=== PATIENT | female | born 1945 | race Caucasian/White ===

== ENCOUNTER → 2017-06-21 12:44 | Outpatient (CLI) | payer MEDICARE, OTHER, SELFPAY ==
--- NOTE | 2017-06-21 12:47 | RAD_ITS ---
STUDY: X-RAY - LEFT KNEE REASON FOR EXAM: Female, 72 years old. 7 months postop. TECHNIQUE: 4 view(s) of the knee. COMPARISON: None. FINDINGS: There is demineralization of the visualized distal femur. There is demineralization of the tibia and fibula. Normal proximal tibiofibular articulation. Total knee arthroplasty is demonstrating showing no evidence of hardware failure or loosening surrounding the prosthesis. Patellar prosthesis showing no evidence of hardware failure is present. No evidence of suprapatellar effusion. The soft tissue structures are unremarkable. RAD/Knee 4 or More Views IMPRESSION: Total knee arthroplasty showing no evidence of hardware failure or loosening with normal alignment. Electronically Signed: Lisandro Weinberg DO at 21:10 EDT , Service support ,
== END ==
PROVIDERS: Family Provider Family Medicine Geriatric Medicine; PCP Family Medicine Geriatric Medicine; Visit Provider Orthopaedic Surgery
DX: M25.562 Pain in left knee (principal); Z96.652 Presence of left artificial knee joint
CPT/HCPCS: 73564

== ENCOUNTER → 2017-07-28 10:28 | Outpatient (CLI) | payer MEDICARE, OTHER, SELFPAY ==
[2017-07-28 12:02] LABS: Absolute Lymphocyte Count 2.71 X10^3/ul (0.83-4.51); Absolute Neutrophil Count 5.7 X10^3/uL (2.0-7.7); Basophil# 0.03 X10^3/uL; Basophil% 0.3 % (0-1); Eosinophil# 0.14 X10^3/uL; Eosinophils% 1.5 % (0-5); Hematocrit 43.4 % (37-47); Hemoglobin 13.5 g/dl (12.0-15.0); Lymphocyte # 2.71 X10^3/ul (4.0); Lymphocyte % 29.6 % (19-41); Mean Corp Hgb Conc 31.1 g/gl (32-36); Mean Corpuscular Hgb 28.3 pg (27.0-32.0); Mean Platelet Vol. 10.7 fl (6.2-12.0); Monocyte# 0.54 X10^3/uL; Monocyte% 5.9 % (0-10); Neutrophil # 5.71 X10^3/uL (2.7-7.7); Neutrophil % 62.6 % (47-70); Platelet Count 218 K/mm3 (150-450); RBC Distribution Width SD 43.1 fl (35.1-43.9); Red Blood Count 4.77 M/mm3 (4.2-5.4); White Blood Count 9.1 K/mm3 (4.4-11.0)
[2017-07-28 12:06] LABS: POSITIVE COUNT NO; POSITIVE DIFFERENTIAL NO; POSITIVE MORPHOLOGY NO
[2017-07-28 12:36] LABS: Vitamin D,25 Hydroxy 21.3 ng/mL (29.95-100.01)
[2017-07-28 12:53] LABS: ALB/GLOB Ratio 0.9 RATIO (0.9-2.4); AST(SGOT) 21 U/L (15-37); Alanine Aminotransfer ALT/SGPT 22 U/L (13-56); Albumin, Serum 3.5 g/dL (3.2-5.0); Alkaline Phosphatase 108 U/L (45-117); Anion Gap 8 (5-15); BUN 12 mg/dL (7-18); BUN/Creat Ratio 11.2 RATIO (10-20); Calcium,Total 8.6 mg/dL (8.5-10.1); Chloride 106 mmol/L (98-107); Creatinine, Serum 1.07 mg/dL (0.55-1.02); EST Glomerular Filtration Rate 54 mL/min (>60); Est Glom Filt Rate - Afr Amer 65 mL/min (>60); Globulin 3.9 g/dL (2.2-4.2); Glucose 100 mg/dL (74-106); Potassium 4.2 mmol/L (3.5-5.1); Protein, Total 7.4 g/dL (6.4-8.2); Sodium Level 141 mmol/L (136-145); Thyroid Stim Hormone (TSH) 1.65 uIU/mL (0.358-3.74)
[2017-07-29 09:27] LABS: Hep C Antibodies <0.1 s/co ratio (0.0-0.9)
== END ==
PROVIDERS: Family Provider Family Medicine Geriatric Medicine; PCP Family Medicine Geriatric Medicine; Visit Provider Family Medicine Geriatric Medicine
DX: E55.9 Vitamin D deficiency, unspecified (principal); I10 Essential (primary) hypertension; Z13.89 Encounter for screening for other disorder
CPT/HCPCS: 36415; 80053; 82306; 84443; 85025; 86803

== ENCOUNTER → 2017-08-28 15:32 | Outpatient (CLI) | payer MEDICARE, OTHER, SELFPAY ==
--- NOTE | 2017-08-28 11:30 | COLBX_PTH ---
PATIENT: COLE CHAVARRIA LOC: [facility] U#:[id number] AGE/SX: 79/F ROOM: RE08/28/[address]: Dr. Jeromy Oro MD : 1945 BED: DIS: SPEC #: [id number] RECD: 08/28/17 15:14 STATUS: IAN REAzam #: [id number] OSVALDO: 08/28/17 11:[address]: Jeromy Oro DEPT: SURGICAL PATHOLOGY RECD BY: Jeffrey Santiago ENTERED: 08/29/17 08:02 SP TYPE: COLON BX OTHR DR: Dr. Hermes Engle MD [facility] Tissues: Cecum, NOS Procedures: Surgery Specimen Level IV HEADER OPERATION: Colonoscopy with polypectomy/biopsy PRE-OP DIAGNOSIS: Screening/polyp TISSUE SUBMITTED: Cecum polyp, rule out adenoma MICROSCOPIC DIAGNOSIS Cecum polyp, biopsy: Fragments of tubular adenoma. SJ:cosmo 08/30/17 MICROSCOPIC DESCRIPTION Slides are reviewed. GROSS DESCRIPTION Received in fixative is one container labeled with the patient's name and designated cecum polyp. The specimen consists of multiple irregular fragments of light miguel soft tissue mixed with fecal material that in aggregate measure 2 x 0.5 x 0.1 cm. The specimen is totally submitted in one cassette. / SJ:cosmo 08/29/17 TC:1 CPT: 18141
== END ==
PROVIDERS: Visit Provider Internal Medicine Gastroenterology
DX: Z12.11 Encounter for screening for malignant neoplasm of colon (principal)
CPT/HCPCS: 88305

== ENCOUNTER → 2017-11-15 10:10 | Outpatient (CLI) | payer MEDICARE, OTHER, SELFPAY ==
[2017-11-15 11:23] LABS: Protein:Creat Ratio 58 mg/g CRE (0-200)
[2017-11-15 11:29] LABS: Albumin, Serum 3.5 g/dL (3.2-5.0); BUN 16 mg/dL (7-18); BUN/Creat Ratio 12.9 RATIO (10-20); Calcium,Total 8.9 mg/dL (8.5-10.1); Chloride 104 mmol/L (98-107); Creatinine, Serum 1.24 mg/dL (0.55-1.02); EST Glomerular Filtration Rate 45 mL/min (>60); Est Glom Filt Rate - Afr Amer 55 mL/min (>60); Glucose 114 mg/dL (74-106); Phosphorus 3.5 mg/dL (2.5-4.9); Sodium Level 139 mmol/L (136-145)
== END ==
PROVIDERS: Family Provider Family Medicine Geriatric Medicine; PCP Family Medicine Geriatric Medicine; Referring Provider Internal Medicine Nephrology; Visit Provider Internal Medicine Nephrology
DX: N17.9 Acute kidney failure, unspecified (principal); I10 Essential (primary) hypertension
CPT/HCPCS: 36415; 80069; 82570; 84156

== ENCOUNTER → 2017-11-23 10:15 | Outpatient (CLI) | payer MEDICARE, OTHER, SELFPAY ==
--- NOTE | 2017-11-23 10:39 | BD_ITS ---
STUDY: DUAL ENERGY X-RAY ABSORPTIOMETRY / DXA REASON FOR EXAM: Female, 72 years old. The patient is postmenopausal. Loss of height. TECHNIQUE: Bone Mineral Density (BMD) measurements of lumbar spine and bilateral hips were obtained. COMPARISON: Comparison is made with prior study dated October 31, 2006. FINDINGS: Lumbar Spine (L1-L4): g/cm2 (0.929) / T-score (-2.0) / Z-score (0.3) Findings are suggestive of osteopenia with a moderate fracture risk. Left Femur Total: g/cm2 (0.736) / T-score (-2.2) / Z-score (-0.6) Left Femoral Neck: g/cm2 (0.738) / T-score (-2.2) / Z-score (-0.4) Right Femur Total: g/cm2 (0.819) / T-score (-1.5) / Z-score (0.0) Right Femoral Neck: g/cm2 (0.771) / T-score (-1.9) / Z-score (-0.2) The T-Scores on the most recent prior examination were: Left Femur Total: which represents a worsening of 20.8%. Right Femur Total: . BD/Dexa Bone Density Study IMPRESSION: The patient is considered osteopenic as outlined below according to World Danial Organization (WHO) criteria with a moderate fracture risk. There has been worsening of bone density since the previous examination. Reference Information: The T-score is the number of standard deviations above or below the standard which is normal for young adults at their peak bone mineral density. The World Health Organization (WHO) interprets the T-scores as follows: Above -1 Normal bone density Between -1 and -2.5 Osteopenia Equal to / or below -2.5 Osteoporosis As a practical clinical guideline, osteopenia may be graded as follows: Mild -1 through -1.5 Moderate -1.6 through -2.0 Severe -2.1 through -2.4 The Z-score is the number of standard deviations above or below age-matched controls. A Z-score of less than -1.5 would be considered abnormal. References: 1. NIH Osteoporosis and Related Bone Diseases http://www.osteo.org 2. International Society for Clinical Densitometry http://www.iscd.org 3. National Osteoporosis Foundation http://www.nof.org Electronically Signed: Marek Baez MD at 15:05 EDT Tel [phone], Service support ,
== END ==
PROVIDERS: PCP Family Medicine Geriatric Medicine; Visit Provider Family Medicine Geriatric Medicine
DX: Z78.0 Asymptomatic menopausal state (principal)
CPT/HCPCS: 77080

== ENCOUNTER → 2017-12-05 12:57 | Outpatient (CLI) | payer MEDICARE, OTHER, SELFPAY ==
--- NOTE | 2017-12-05 13:00 | RAD_ITS ---
STUDY: X-RAY - LEFT KNEE REASON FOR EXAM: Female, 72 years old. Pain TECHNIQUE: 4 view(s) of the knee. COMPARISON: 06/21/17 FINDINGS: There has been previous replacement of the left knee joint. Components demonstrate anatomic alignment. No plain film evidence of hardware convocation, failure or acute abnormality. RAD/Knee 4 or More Views IMPRESSION: Stable appearance of a replaced left knee joint. No hardware convocation or acute abnormality noted Electronically Signed: Fabian Fischer MD at 13:39 EDT , Service support ,
== END ==
PROVIDERS: Family Provider Family Medicine Geriatric Medicine; PCP Family Medicine Geriatric Medicine; Referring Provider Physician Assistant; Visit Provider Physician Assistant
DX: M17.12 Unilateral primary osteoarthritis, left knee (principal); Z96.652 Presence of left artificial knee joint
CPT/HCPCS: 73564

== ENCOUNTER → 2017-12-06 14:26 | Outpatient (CLI) | payer MEDICARE, OTHER, SELFPAY ==
--- NOTE | 2017-12-06 14:28 | BI_ITS ---
MAMMOGRAPHY - BILATERAL SCREENING REASON FOR EXAM: Female, 72 years old. Routine annual screening examination. PERTINENT HISTORY: Non-contributory. TECHNIQUE: Digital bilateral breast will (3D mammographic acquisition) in the CC and MLO projections. 2-D mediolateral oblique (MLO) and craniocaudad (CC) views of both breasts were obtained. CAD: Full Field Digital Mammography with Computer Added Detection was performed. COMPARISON: Comparison is made with prior study dated July 16, 2014 and January 13, 2012. FINDINGS: Breast Composition: There are scattered areas of fibroglandular density. There are no dominant masses or suspicious calcifications. Stable benign-appearing left axillary lymph nodes. No other significant abnormalities are identified. There has been no significant change since the prior study. BI/SCREENING MAMM (CAD), BILAT IMPRESSION: Stable bilateral screening mammogram. Yearly follow-up mammogram recommended. (A) ASSESSMENT CATEGORY: BIRADS Category 2: Benign. A letter regarding these results will be sent to the patient by the facility within 30 days. Approximately 10% of breast cancers are not detected by mammography. A normal mammogram should not delay biopsy of a clinically suspicious abnormality. [id number] Electronically Signed: Marek Baez MD at 15:31 EDT Tel [phone], Service support ,
== END ==
PROVIDERS: Family Provider Family Medicine Geriatric Medicine; PCP Family Medicine Geriatric Medicine; Referring Provider Family Medicine Geriatric Medicine; Visit Provider Family Medicine Geriatric Medicine
DX: Z12.31 Encounter for screening mammogram for malignant neoplasm of breast (principal)
CPT/HCPCS: 77063; 77067

== ENCOUNTER → 2018-01-09 11:19 | Outpatient (CLI) | payer MEDICARE, OTHER, SELFPAY ==
[2018-01-09 12:30] LABS: Absolute Lymphocyte Count 3.07 X10^3/ul (0.83-4.51); Absolute Neutrophil Count 5.6 X10^3/uL (2.0-7.7); Basophil# 0.05 X10^3/uL; Basophil% 0.5 % (0-1); Eosinophil# 0.19 X10^3/uL; Eosinophils% 1.9 % (0-5); Hematocrit 45.4 % (37-47); Hemoglobin 14.3 g/dl (12.0-15.0); Lymphocyte # 3.07 X10^3/ul (4.0); Lymphocyte % 31.5 % (19-41); Mean Corp Hgb Conc 31.5 g/gl (32-36); Mean Corpuscular Volume 92.1 fL (81-99); Mean Platelet Vol. 11.4 fl (6.2-12.0); Monocyte# 0.83 X10^3/uL; Monocyte% 8.5 % (0-10); Neutrophil # 5.61 X10^3/uL (2.7-7.7); Neutrophil % 57.5 % (47-70); Platelet Count 207 K/mm3 (150-450); RBC Distribution Width CV 13.2 % (11.6-14.6); RBC Distribution Width SD 44.3 fl (35.1-43.9); Red Blood Count 4.93 M/mm3 (4.2-5.4); White Blood Count 9.8 K/mm3 (4.4-11.0)
[2018-01-09 12:32] LABS: POSITIVE COUNT NO; POSITIVE DIFFERENTIAL NO; POSITIVE MORPHOLOGY NO
[2018-01-09 12:52] LABS: Vitamin D,25 Hydroxy 21.2 ng/mL (29.95-100.01)
[2018-01-09 13:01] LABS: ALB/GLOB Ratio 0.9 RATIO (0.9-2.4); AST(SGOT) 24 U/L (15-37); Alanine Aminotransfer ALT/SGPT 26 U/L (13-56); Albumin, Serum 3.6 g/dL (3.2-5.0); Alkaline Phosphatase 127 U/L (45-117); Anion Gap 12 (5-15); BUN 13 mg/dL (7-18); BUN/Creat Ratio 11.6 RATIO (10-20); Calcium,Total 8.7 mg/dL (8.5-10.1); Chloride 105 mmol/L (98-107); Creatinine, Serum 1.12 mg/dL (0.55-1.02); EST Glomerular Filtration Rate 51 mL/min (>60); Est Glom Filt Rate - Afr Amer 62 mL/min (>60); Globulin 3.9 g/dL (2.2-4.2); Glucose 102 mg/dL (74-106); Potassium 4.3 mmol/L (3.5-5.1); Protein, Total 7.5 g/dL (6.4-8.2); Sodium Level 142 mmol/L (136-145); Thyroid Stim Hormone (TSH) 2.43 uIU/mL (0.358-3.74)
== END ==
PROVIDERS: Family Provider Family Medicine Geriatric Medicine; PCP Family Medicine Geriatric Medicine; Visit Provider Family Medicine Geriatric Medicine
DX: E55.9 Vitamin D deficiency, unspecified (principal); I10 Essential (primary) hypertension
CPT/HCPCS: 36415; 80053; 82306; 84443; 85025

== ENCOUNTER → 2018-05-09 11:45 | Outpatient (CLI) | payer MEDICARE, OTHER, SELFPAY | PROVIDERS: Family Provider Family Medicine Geriatric Medicine; PCP Family Medicine Geriatric Medicine; Referring Provider Family Medicine Geriatric Medicine; Visit Provider Family Medicine Geriatric Medicine | DX: R68.83 Chills (without fever) (principal) | CPT/HCPCS: 87633 ==

== ENCOUNTER → 2018-07-30 11:09 | Outpatient (CLI) | payer MEDICARE, OTHER, SELFPAY ==
[2018-07-30 11:39] LABS: Absolute Lymphocyte Count 3.03 X10^3/ul (0.83-4.51); Absolute Neutrophil Count 6.7 X10^3/uL (2.0-7.7); Basophil# 0.07 X10^3/uL; Basophil% 0.6 % (0-1); Eosinophil# 0.23 X10^3/uL; Eosinophils% 2.1 % (0-5); Hematocrit 42.1 % (37-47); Hemoglobin 13.3 g/dl (12.0-15.0); Lymphocyte # 3.03 X10^3/ul (4.0); Lymphocyte % 27.2 % (19-41); Mean Corp Hgb Conc 31.6 g/gl (32-36); Mean Corpuscular Hgb 29.2 pg (27.0-32.0); Mean Corpuscular Volume 92.5 fL (81-99); Mean Platelet Vol. 10.7 fl (6.2-12.0); Monocyte# 1.11 X10^3/uL; Neutrophil # 6.68 X10^3/uL (2.7-7.7); Platelet Count 228 K/mm3 (150-450); RBC Distribution Width CV 13.3 % (11.6-14.6); Red Blood Count 4.55 M/mm3 (4.2-5.4); White Blood Count 11.1 K/mm3 (4.4-11.0)
[2018-07-30 11:43] LABS: POSITIVE COUNT NO; POSITIVE DIFFERENTIAL NO; POSITIVE MORPHOLOGY NO
[2018-07-30 12:07] LABS: Vitamin D,25 Hydroxy 24.1 ng/mL (29.95-100.01)
[2018-07-30 12:15] LABS: ALB/GLOB Ratio 0.9 RATIO (0.9-2.4); AST(SGOT) 17 U/L (15-37); Alanine Aminotransfer ALT/SGPT 23 U/L (13-56); Albumin, Serum 3.3 g/dL (3.2-5.0); Alkaline Phosphatase 116 U/L (45-117); Anion Gap 8 (5-15); BUN 17 mg/dL (7-18); BUN/Creat Ratio 15.2 RATIO (10-20); Calcium,Total 8.7 mg/dL (8.5-10.1); Chloride 107 mmol/L (98-107); Creatinine, Serum 1.12 mg/dL (0.55-1.02); EST Glomerular Filtration Rate 51 mL/min (>60); Est Glom Filt Rate - Afr Amer 62 mL/min (>60); Globulin 3.7 g/dL (2.2-4.2); Glucose 101 mg/dL (74-106); Sodium Level 142 mmol/L (136-145)
== END ==
PROVIDERS: Family Provider Family Medicine Geriatric Medicine; PCP Family Medicine Geriatric Medicine; Visit Provider Family Medicine Geriatric Medicine
DX: E55.9 Vitamin D deficiency, unspecified (principal); I10 Essential (primary) hypertension
CPT/HCPCS: 36415; 80053; 82306; 84443; 85025

== ENCOUNTER → 2018-08-17 08:55 | Outpatient (CLI) | payer MEDICARE, OTHER, SELFPAY ==
--- NOTE | 2018-08-17 08:57 | CDU_ITS ---
Reason For Study: Stenosis Rt. Velocities/BP Lt. Velocities/BP Prox CCA 93/18.6 cm/sec. Prox CCA 60.4/18.6 cm/sec. Mid CCA 66.2/14.6 cm/sec. Mid CCA 50.9/12.5 cm/sec. Dist CCA 68.4/12.4 cm/sec. Dist CCA 56.1/15.1 cm/sec. Prox ICA 56.4/13 cm/sec. Prox ICA 38.9/12.7 cm/sec. Mid ICA 64.8/22.1 cm/sec. Mid ICA 57.7/18.8 cm/sec. Dist ICA 76.8/25.8 cm/sec. Dist ICA 73/20.1 cm/sec. Rt. ICA/CCA = 1.1. Lt. ICA/CCA = 1.3. Prox ECA 50/7.3 cm/sec. Prox ECA 48.2/7.2 cm/sec. Rt. Vert. 48.2/7.3 cm/sec. Lt. Vert. 43.9/12.5 cm/sec. Right Extracranial There is homogeneous, smooth atherosclerotic plaque noted in the right common carotid artery. There is intimal thickening but no significant atherosclerotic plaque noted in the right internal carotid artery. There is intimal thickening but no significant atherosclerotic plaque noted in the right external carotid artery. Antegrade flow is noted in the right vertebral artery. Left Extracranial There is homogeneous, smooth atherosclerotic plaque noted in the left common carotid artery. There is intimal thickening but no significant atherosclerotic plaque noted in the left internal carotid artery. There is intimal thickening but no significant atherosclerotic plaque noted in the left external carotid artery. The left external carotid artery is not well visualized. Antegrade flow is noted in the left vertebral artery. Procedure Carotid Duplex [id number]. Exam performed in department. Interpretation Summary No significant atherosclerotic plaque or stenosis noted in the internal carotid arteries bilaterally. Flow within the vertebral arteries is antegrade bilaterally. Ordering Physician: Hermes Engle Referring Physician: Hermes Engle Chi Performed By: Rina Rodriguez RVT
== END ==
PROVIDERS: Family Provider Family Medicine Geriatric Medicine; PCP Family Medicine Geriatric Medicine; Referring Provider Family Medicine Geriatric Medicine; Visit Provider Family Medicine Geriatric Medicine
DX: R09.89 Other specified symptoms and signs involving the circulatory and respiratory systems (principal)
CPT/HCPCS: 93880

== ENCOUNTER → 2019-02-21 14:13 | Outpatient (CLI) | payer MEDICARE, OTHER, SELFPAY ==
[2019-02-21 16:41] LABS: Absolute Lymphocyte Count 2.69 X10^3/uL (0.83-4.51); Basophil# 0.07 X10^3/uL; Basophil% 0.8 % (0-1); Eosinophil# 0.23 X10^3/uL; Eosinophils% 2.6 % (0-5); Hematocrit 45.3 % (37-47); Hemoglobin 13.9 g/dL (12.0-15.0); Lymphocyte # 2.69 X10^3/ul (4.0); Lymphocyte % 30.1 % (19-41); Mean Corp Hgb Conc 30.7 g/dL (32-36); Mean Corpuscular Hgb 28.4 pg (27.0-32.0); Mean Corpuscular Volume 92.4 fL (81-99); Mean Platelet Vol. 11.4 fl (6.2-12.0); Monocyte# 0.89 X10^3/uL; NRBC Flagged by Analyzer 0 % (0-5); Neutrophil # 5.03 X10^3/uL (2.7-7.7); Neutrophil % 56.3 % (47-70); Platelet Count 199 K/mm3 (150-450); RBC Distribution Width CV 13.2 % (11.6-14.6); RBC Distribution Width SD 44.5 fl (35.1-43.9); White Blood Count 8.9 K/mm3 (4.4-11.0)
[2019-02-21 17:06] LABS: Vitamin D,25 Hydroxy 18.6 ng/mL (29.95-100.01)
[2019-02-21 17:12] LABS: ALB/GLOB Ratio 0.9 RATIO (0.9-2.4); AST(SGOT) 22 U/L (15-37); Alanine Aminotransfer ALT/SGPT 28 U/L (13-56); Albumin, Serum 3.4 g/dL (3.2-5.0); Alkaline Phosphatase 120 U/L (45-117); Anion Gap 4 (5-15); BUN 15 mg/dL (7-18); BUN/Creat Ratio 14.2 RATIO (10-20); Calcium,Total 9.1 mg/dL (8.5-10.1); Chloride 107 mmol/L (98-107); Creatinine, Serum 1.06 mg/dL (0.55-1.02); EST Glomerular Filtration Rate 54 mL/min (>60); Est Glom Filt Rate - Afr Amer 65 mL/min (>60); Globulin 3.9 g/dL (2.2-4.2); Glucose 84 mg/dL (74-106); Potassium 4.3 mmol/L (3.5-5.1); Protein, Total 7.3 g/dL (6.4-8.2); Sodium Level 141 mmol/L (136-145); Thyroid Stim Hormone (TSH) 1.56 uIU/mL (0.358-3.74)
== END ==
PROVIDERS: PCP Family Medicine Geriatric Medicine; Visit Provider Family Medicine Geriatric Medicine
DX: E55.9 Vitamin D deficiency, unspecified (principal); I10 Essential (primary) hypertension
CPT/HCPCS: 36415; 80053; 82306; 84443; 85025

== ENCOUNTER → 2019-03-18 09:38 | Outpatient (CLI) | payer MEDICARE, OTHER, SELFPAY ==
[2019-03-18 09:31] VITALS: BMI 36.3
--- NOTE | 2019-03-18 09:39 | RAD_ITS ---
HISTORY: LEFT LATERAL/ANTERIOR KNEE PAIN SINCE MAY, HX KNEE SURGERY 3 YEARS AGO EXAM:Right Knee COMPARISON: December 05, 2017 FINDINGS: # of images incl. paperwork: 4 Cemented tricompartment left knee arthroplasty has been performed. Alignment is normal. No evidence of loosening. No fracture. RAD/Knee 4 or More Views IMPRESSION: Stable left knee arthroplasty. at 0590 Reported and signed by: Placido Krishna MD Electronically Signed: Placido Krishna MD at 5:50 EST Tel , Service support ,
== END ==
PROVIDERS: PCP Family Medicine Geriatric Medicine; Referring Provider Physician Assistant; Visit Provider Physician Assistant
DX: M25.562 Pain in left knee (principal); Z96.652 Presence of left artificial knee joint
CPT/HCPCS: 73564

== ENCOUNTER → 2019-06-21 11:20 | Outpatient (CLI) | payer MEDICARE, OTHER, SELFPAY ==
[2019-05-31 11:39] VITALS: BMI 36.3
--- NOTE | 2019-06-21 11:20 | RAD_ITS ---
STUDY: X-RAY - LEFT ANKLE REASON FOR EXAM: Female, 74 years old. FRACTURE TECHNIQUE: 3 view(s) of the ankle. COMPARISON: Comparison is made with FINDINGS: Normal visualized distal tibia and fibula. Nondisplaced avulsion type fracture of the lateral malleolus. Normal tibiotalar articulation and ankle mortise. Calcaneal spurs. The visualized subtalar, talonavicular, calcaneocuboid and tarsal articulations are normal. Lateral soft tissue swelling. RAD/Ankle min 3 Views IMPRESSION: Nondisplaced avulsion fracture of the lateral malleolus with overlying soft tissue swelling. Calcaneal spurs. Electronically Signed: Marek Baez, at 12:48 EDT , Service support ,
== END ==
PROVIDERS: PCP Family Medicine Geriatric Medicine; Referring Provider Orthopaedic Surgery; Visit Provider Orthopaedic Surgery
DX: S82.62XA Displaced fracture of lateral malleolus of left fibula, initial encounter for closed fracture (principal)
CPT/HCPCS: 73610

== ENCOUNTER → 2019-08-30 11:00 | Outpatient (CLI) | payer MEDICARE, OTHER, SELFPAY ==
[2019-06-21 11:47] VITALS: BMI 36.3
[2019-08-30 12:25] LABS: Absolute Lymphocyte Count 3.62 X10^3/uL (0.83-4.51); Absolute Neutrophil Count 6.8 X10^3/uL (2.0-7.7); Basophil# 0.08 X10^3/uL; Basophil% 0.7 % (0-1); Eosinophil# 0.14 X10^3/uL; Eosinophils% 1.2 % (0-5); Hematocrit 44.3 % (37-47); Lymphocyte # 3.62 X10^3/ul (4.0); Mean Corp Hgb Conc 31.6 g/dL (32-36); Mean Corpuscular Hgb 29.7 pg (27.0-32.0); Mean Corpuscular Volume 94.1 fL (81-99); Mean Platelet Vol. 11.6 fl (6.2-12.0); Monocyte# 0.98 X10^3/uL; Monocyte% 8.4 % (0-10); NRBC Flagged by Analyzer 0 % (0-5); Neutrophil # 6.83 X10^3/uL (2.7-7.7); Neutrophil % 58.4 % (47-70); Platelet Count 244 K/mm3 (150-450); RBC Distribution Width CV 12.9 % (11.6-14.6); RBC Distribution Width SD 44.7 fl (35.1-43.9); Red Blood Count 4.71 M/mm3 (4.2-5.4); White Blood Count 11.7 K/mm3 (4.4-11.0)
[2019-08-30 12:45] LABS: Vitamin D,25 Hydroxy 24.9 ng/mL
[2019-08-30 12:47] LABS: ALB/GLOB Ratio 0.9 RATIO (0.9-2.4); AST(SGOT) 15 U/L (15-37); Alanine Aminotransfer ALT/SGPT 20 U/L (13-56); Albumin, Serum 3.6 g/dL (3.2-5.0); Alkaline Phosphatase 109 U/L (45-117); Anion Gap 4 (5-15); BUN 16 mg/dL (7-18); BUN/Creat Ratio 15.2 RATIO (10-20); Chloride 108 mmol/L (98-107); Creatinine, Serum 1.05 mg/dL (0.55-1.02); EST Glomerular Filtration Rate 55 mL/min (>60); Est Glom Filt Rate - Afr Amer 66 mL/min (>60); Globulin 3.8 g/dL (2.2-4.2); Glucose 123 mg/dL (74-106); Potassium 4.1 mmol/L (3.5-5.1); Protein, Total 7.4 g/dL (6.4-8.2); Sodium Level 141 mmol/L (136-145); Thyroid Stim Hormone (TSH) 2.27 uIU/mL (0.358-3.74)
== END ==
PROVIDERS: PCP Family Medicine Geriatric Medicine; Visit Provider Family Medicine Geriatric Medicine
DX: E55.9 Vitamin D deficiency, unspecified (principal); I10 Essential (primary) hypertension
CPT/HCPCS: 36415; 80053; 82306; 84443; 85025

== ENCOUNTER → 2020-03-02 11:32 | Outpatient (CLI) | payer MEDICARE, OTHER, SELFPAY ==
[2019-06-21 11:47] VITALS: BMI 36.3
[2020-03-02 12:50] LABS: Absolute Lymphocyte Count 2.78 X10^3/uL (0.83-4.51); Absolute Neutrophil Count 5.2 X10^3/uL (2.0-7.7); Basophil# 0.05 X10^3/uL; Basophil% 0.5 % (0-1); Eosinophil# 0.19 X10^3/uL; Eosinophils% 2.1 % (0-5); Hematocrit 45.1 % (37-47); Hemoglobin 14.1 g/dL (12.0-15.0); Lymphocyte # 2.78 X10^3/ul (4.0); Lymphocyte % 30.5 % (19-41); Mean Corp Hgb Conc 31.3 g/dL (32-36); Mean Corpuscular Hgb 28.4 pg (27.0-32.0); Mean Corpuscular Volume 90.7 fL (81-99); Mean Platelet Vol. 11.5 fl (6.2-12.0); Monocyte# 0.81 X10^3/uL; Monocyte% 8.9 % (0-10); NRBC Flagged by Analyzer 0 % (0-5); Neutrophil # 5.24 X10^3/uL (2.7-7.7); Neutrophil % 57.7 % (47-70); Platelet Count 253 K/mm3 (150-450); RBC Distribution Width CV 12.9 % (11.6-14.6); RBC Distribution Width SD 42.6 fl (35.1-43.9); Red Blood Count 4.97 M/mm3 (4.2-5.4); White Blood Count 9.1 K/mm3 (4.4-11.0)
[2020-03-02 13:01] LABS: Vitamin D,25 Hydroxy 23.1 ng/mL
[2020-03-02 13:12] LABS: ALB/GLOB Ratio 0.8 RATIO (0.9-2.4); AST(SGOT) 19 U/L (15-37); Alanine Aminotransfer ALT/SGPT 21 U/L (13-56); Albumin, Serum 3.4 g/dL (3.2-5.0); Alkaline Phosphatase 114 U/L (45-117); Anion Gap 5 (5-15); BUN 11 mg/dL (7-18); BUN/Creat Ratio 9.5 RATIO (10-20); Calcium,Total 8.6 mg/dL (8.5-10.1); Chloride 105 mmol/L (98-107); Creatinine, Serum 1.16 mg/dL (0.55-1.02); EST Glomerular Filtration Rate 49 mL/min (>60); Est Glom Filt Rate - Afr Amer 59 mL/min (>60); Glucose 94 mg/dL (74-106); Potassium 4.4 mmol/L (3.5-5.1); Protein, Total 7.4 g/dL (6.4-8.2); Sodium Level 140 mmol/L (136-145); Thyroid Stim Hormone (TSH) 2.06 uIU/mL (0.358-3.74)
== END ==
PROVIDERS: PCP Family Medicine Geriatric Medicine; Visit Provider Family Medicine Geriatric Medicine
DX: I10 Essential (primary) hypertension (principal); E55.9 Vitamin D deficiency, unspecified
CPT/HCPCS: 36415; 80053; 82306; 84443; 85025

== ENCOUNTER → 2020-08-31 10:00 | Outpatient (CLI) | payer MEDICARE, OTHER, SELFPAY ==
[2019-06-21 11:47] VITALS: BMI 36.3
[2020-08-31 12:43] LABS: Absolute Neutrophil Count 5.7 X10^3/uL (2.0-7.7); Basophil# 0.09 X10^3/uL; Basophil% 0.9 % (0-1); Eosinophil# 0.19 X10^3/uL; Eosinophils% 1.8 % (0-5); Hematocrit 44.9 % (37-47); Hemoglobin 14.3 g/dL (12.0-15.0); Lymphocyte % 34.2 % (19-41); Mean Corp Hgb Conc 31.8 g/dL (32-36); Mean Corpuscular Hgb 28.6 pg (27.0-32.0); Mean Corpuscular Volume 89.8 fL (81-99); Mean Platelet Vol. 11.3 fl (6.2-12.0); Monocyte# 0.95 X10^3/uL; NRBC Flagged by Analyzer 0 % (0-5); Neutrophil # 5.66 X10^3/uL (2.7-7.7); Neutrophil % 53.8 % (47-70); Platelet Count 236 K/mm3 (150-450); RBC Distribution Width CV 13.1 % (11.6-14.6); RBC Distribution Width SD 42.9 fl (35.1-43.9); White Blood Count 10.5 K/mm3 (4.4-11.0)
[2020-08-31 12:50] LABS: Vitamin D,25 Hydroxy 23.9 ng/mL
[2020-08-31 13:18] LABS: AST(SGOT) 20 U/L (15-37); Alanine Aminotransfer ALT/SGPT 20 U/L (13-56); Albumin, Serum 3.9 g/dL (3.2-5.0); Alkaline Phosphatase 109 U/L (45-117); Anion Gap 7 (5-15); BUN 13 mg/dL (7-18); BUN/Creat Ratio 11.8 RATIO (10-20); Calcium,Total 8.8 mg/dL (8.5-10.1); Chloride 106 mmol/L (98-107); EST Glomerular Filtration Rate 52 mL/min (>60); Est Glom Filt Rate - Afr Amer 62 mL/min (>60); Globulin 3.8 g/dL (2.2-4.2); Glucose 114 mg/dL (74-106); Potassium 4.2 mmol/L (3.5-5.1); Protein, Total 7.7 g/dL (6.4-8.2); Sodium Level 139 mmol/L (136-145); Thyroid Stim Hormone (TSH) 2.28 uIU/mL (0.358-3.74)
== END ==
PROVIDERS: PCP Family Medicine Geriatric Medicine; Visit Provider Family Medicine Geriatric Medicine
DX: I10 Essential (primary) hypertension (principal); E55.9 Vitamin D deficiency, unspecified
CPT/HCPCS: 36415; 80053; 82306; 84443; 85025

== ENCOUNTER 2021-02-17 10:18 | Outpatient (CLI) | payer MEDICARE, OTHER, SELFPAY ==
--- NOTE | 2021-02-17 10:20 | MRI_ITS ---
EXAM: MR HEAD WITHOUT AND WITH INTRAVENOUS CONTRAST CLINICAL INDICATION: Follow-up meningioma. TECHNIQUE: Multiplanar and multisequence MR images of the brain were obtained without and with intravenous contrast. This report was created using Admitly report Cody technology. CONTRAST: IV 17ml Dotarem COMPARISON: MRI brain with and without contrast 07/13/2016. FINDINGS: BRAIN AND EXTRA-AXIAL SPACES: Solid enhancing dural based mass overlying the posterior aspect of the left middle frontal gyrus measures 2.4 x 1.6 x 2 cm. This is unchanged in size and configuration. There is mild mass effect on the left middle frontal gyrus but no associated vasogenic edema of the underlying brain parenchyma. Few T2 FLAIR hyperintensity foci in the white matter of both cerebral hemispheres are chronic white matter ischemic changes and unchanged. No intra- or extra-axial hemorrhage. Posterior fossa structures are unremarkable. Basal cisterns are patent. SELLA: Unremarkable. Normal sella turcica, pituitary gland, infundibular stalk, optic chiasm and hypothalamus. AUDITORY SYSTEM: Unremarkable. The internal auditory canals are patent. BONES/JOINTS: Unremarkable. No discrete lytic or blastic abnormalities. SINUSES: Unremarkable as visualized. Clear. MASTOID AIR CELLS: Unremarkable as visualized. Clear. ORBITS: Unremarkable as visualized. Both globes, extraocular muscles, optic nerves and retrobulbar fat appear unremarkable. VASCULATURE: Unremarkable as visualized. Normal flow voids in the major intracranial circulation. MRI/Brain W/WO Contrast IMPRESSION: 1. No interval change in size or configuration of the solid enhancing meningioma overlying the posterior aspect of the left middle frontal gyrus convexity when compared to 07/13/2016. 2. Few chronic white matter ischemic changes in both cerebral hemispheres are unchanged. Electronically Signed: Santiago Fishman MD at 15:58 EST , Service support ,
[2021-02-17 10:50] LABS: CREATININE FINGERSTICK 0.9 mg/dL (0.55-1.02); EGFR FINGERSTICK > 60.0000 mL/min (>60)
== END 2021-02-17 23:59 | disposition short-term general hospital (02) ==
LOC: MRI 10:20
PROVIDERS: PCP Family Medicine Geriatric Medicine; Referring Provider Psychiatry & Neurology Neurology; Visit Provider Psychiatry & Neurology Neurology
DX: D32.9 Benign neoplasm of meninges, unspecified (principal)
CPT/HCPCS: 70553; A9575

== ENCOUNTER 2021-05-21 12:27 | Outpatient (CLI) | payer MEDICARE, OTHER, SELFPAY ==
[2021-05-21 12:57] LABS: Hematocrit 42.8 % (37-47); Hemoglobin 13.5 g/dL (12.0-15.0); Mean Corp Hgb Conc 31.5 g/dL (32-36); Mean Corpuscular Hgb 28.4 pg (27.0-32.0); Mean Corpuscular Volume 90.1 fL (81-99); Mean Platelet Vol. 10.6 fl (6.2-12.0); Platelet Count 224 K/mm3 (150-450); RBC Distribution Width CV 12.8 % (11.6-14.6); RBC Distribution Width SD 42.4 fl (35.1-43.9); Red Blood Count 4.75 M/mm3 (4.2-5.4); White Blood Count 10.1 K/mm3 (4.4-11.0)
[2021-05-21 13:25] LABS: Ammonia < 10.0 umol/L (11-32)
[2021-05-21 13:34] LABS: ALB/GLOB Ratio 0.9 RATIO (0.9-2.4); AST(SGOT) 16 U/L (15-37); Alanine Aminotransfer ALT/SGPT 19 U/L (13-56); Albumin, Serum 3.4 g/dL (3.2-5.0); Alkaline Phosphatase 105 U/L (45-117); Anion Gap 6 (5-15); BUN 18 mg/dL (7-18); BUN/Creat Ratio 16.5 RATIO (10-20); Calcium,Total 8.5 mg/dL (8.5-10.1); Chloride 105 mmol/L (98-107); Cholesterol 173 mg/dL (200); Creatinine, Serum 1.09 mg/dL (0.55-1.02); EST Glomerular Filtration Rate 52 mL/min (>60); Est Glom Filt Rate - Afr Amer 63 mL/min (>60); Globulin 3.8 g/dL (2.2-4.2); Glucose 100 mg/dL (74-106); High Density Lipoprotein 60 mg/dL; Potassium 4.1 mmol/L (3.5-5.1); Protein, Total 7.2 g/dL (6.4-8.2); Sodium Level 139 mmol/L (136-145); Triglycerides 112 mg/dL; Very Low Density Lipoprotein 22 mg/dL (5-40)
[2021-05-24 14:27] LABS: Vitamin D 1,25-Dihydroxy 30.9 pg/mL (19.9-79.3)
[2021-05-27 18:53] LABS: KEPPRA (LEVETIRACETAM) <1.0 ug/mL (10.0-40.0)
== END 2021-05-21 23:59 | disposition home or self-care (01) ==
LOC: LAB 12:29
PROVIDERS: PCP Family Medicine Geriatric Medicine; Referring Provider Psychiatry & Neurology Neurology; Visit Provider Psychiatry & Neurology Neurology
DX: G40.909 Epilepsy, unspecified, not intractable, without status epilepticus (principal); E78.5 Hyperlipidemia, unspecified; E55.9 Vitamin D deficiency, unspecified
CPT/HCPCS: 36415; 80053; 80061; 80177; 82140; 82652; 85027

== ENCOUNTER → 2021-10-05 | Outpatient (CLI) | payer MEDICARE, OTHER, SELFPAY ==
[2021-10-05 16:32] LABS: Absolute Lymphocyte Count 3.02 X10^3/uL (0.83-4.51); Basophil# 0.08 X10^3/uL; Basophil% 0.8 % (0-1); Eosinophil# 0.15 X10^3/uL; Eosinophils% 1.5 % (0-5); Hematocrit 42.9 % (37-47); Hemoglobin 13.6 g/dL (12.0-15.0); Lymphocyte # 3.02 X10^3/ul (0.83-4.51); Lymphocyte % 29.5 % (19-41); Mean Corp Hgb Conc 31.7 g/dL (32-36); Mean Corpuscular Hgb 28.8 pg (27.0-32.0); Mean Corpuscular Volume 90.7 fL (81-99); Mean Platelet Vol. 11.4 fl (6.2-12.0); Monocyte# 0.97 X10^3/uL; Monocyte% 9.5 % (0-10); NRBC Flagged by Analyzer 0 % (0-5); Neutrophil # 5.99 X10^3/uL (2.7-7.7); Neutrophil % 58.4 % (47-70); Platelet Count 202 K/mm3 (150-450); RBC Distribution Width CV 13.1 % (11.6-14.6); RBC Distribution Width SD 43.7 fl (35.1-43.9); Red Blood Count 4.73 M/mm3 (4.2-5.4); White Blood Count 10.2 K/mm3 (4.4-11.0)
[2021-10-05 16:46] LABS: Vitamin D,25 Hydroxy 17.3 ng/mL
[2021-10-05 16:52] LABS: ALB/GLOB Ratio 0.9 RATIO (0.9-2.4); AST(SGOT) 17 U/L (15-37); Alanine Aminotransfer ALT/SGPT 17 U/L (13-56); Albumin, Serum 3.3 g/dL (3.2-5.0); Alkaline Phosphatase 112 U/L (45-117); Anion Gap 8 (5-15); BUN 15 mg/dL (7-18); BUN/Creat Ratio 13.6 RATIO (10-20); Calcium,Total 8.4 mg/dL (8.5-10.1); Chloride 107 mmol/L (98-107); EST Glomerular Filtration Rate 51 mL/min (>60); Est Glom Filt Rate - Afr Amer 62 mL/min (>60); Globulin 3.7 g/dL (2.2-4.2); Glucose 103 mg/dL (74-106); Potassium 4.3 mmol/L (3.5-5.1); Sodium Level 143 mmol/L (136-145); Thyroid Stim Hormone (TSH) 1.75 uIU/mL (0.358-3.74)
== END | disposition home or self-care (01) ==
LOC: POLAB3 14:25
PROVIDERS: PCP Family Medicine Geriatric Medicine; Visit Provider Family Medicine Geriatric Medicine
DX: E55.9 Vitamin D deficiency, unspecified (principal); I10 Essential (primary) hypertension
CPT/HCPCS: 36415; 80053; 82306; 84443; 85025

== ENCOUNTER → 2022-02-11 | Outpatient (CLI) | payer MEDICARE, OTHER, SELFPAY ==
--- NOTE | 2022-02-11 11:59 | BI_ITS ---
MAMMOGRAPHY - BILATERAL SCREENING REASON FOR EXAM: Female, 76 years old. Routine annual screening examination. PERTINENT HISTORY: Non-contributory. TECHNIQUE: Digital bilateral breast jaiden (3D mammographic acquisition) in the CC and MLO projections. 2-D mediolateral oblique (MLO) and craniocaudad (CC) views of both breasts were obtained. CAD: Full Field Digital Mammography with Computer Added Detection was performed. COMPARISON: Comparison is made with prior study 12/06/2017 and 07/16/2014. FINDINGS: Breast Composition: There are scattered areas of fibroglandular density. There are no dominant masses or suspicious calcifications. Stable small benign-appearing bilateral axillary lymph nodes. No other significant abnormalities are identified. There has been no significant change since the prior study. BI/SCRN MAMM (CAD)W/JAIDEN BILAT IMPRESSION: Stable bilateral screening mammogram. Yearly follow-up mammogram recommended. (A) ASSESSMENT CATEGORY: BIRADS Category 2: Benign. A letter regarding these results will be sent to the patient by the facility within 30 days. Approximately 10% of breast cancers are not detected by mammography. A normal mammogram should not delay biopsy of a clinically suspicious abnormality. [id number] Electronically Signed: Marek Baez MD at 13:12 EST ,
== END | disposition home or self-care (01) ==
PROVIDERS: PCP Family Medicine Geriatric Medicine; Visit Provider Family Medicine Geriatric Medicine
DX: Z12.31 Encounter for screening mammogram for malignant neoplasm of breast (principal)
CPT/HCPCS: 77063; 77067

== ENCOUNTER → 2022-06-24 | Outpatient (CLI) | payer MEDICARE, OTHER, SELFPAY | END | disposition home or self-care (01) | LOC: POLAB3 12:15 | PROVIDERS: PCP Family Medicine Geriatric Medicine; Visit Provider Family Medicine Geriatric Medicine | DX: R30.0 Dysuria (principal) | CPT/HCPCS: 87086 ==

== ENCOUNTER → 2022-10-12 | Outpatient (CLI) | payer MEDICARE, OTHER, SELFPAY ==
[2022-10-12 14:12] LABS: Absolute Lymphocyte Count 2.64 X10^3/uL (0.83-4.51); Absolute Neutrophil Count 5.6 X10^3/uL (2.0-7.7); Basophil# 0.06 X10^3/uL; Basophil% 0.6 % (0-1); Eosinophil# 0.18 X10^3/uL; Eosinophils% 1.9 % (0-5); Hematocrit 44.2 % (37-47); Hemoglobin 13.7 g/dL (12.0-15.0); Lymphocyte # 2.64 X10^3/ul (0.83-4.51); Lymphocyte % 28.5 % (19-41); Mean Corpuscular Hgb 28.4 pg (27.0-32.0); Mean Corpuscular Volume 91.5 fL (81-99); Mean Platelet Vol. 11.6 fl (6.2-12.0); Monocyte# 0.81 X10^3/uL; Monocyte% 8.7 % (0-10); NRBC Flagged by Analyzer 0 % (0-5); Neutrophil # 5.56 X10^3/uL (2.7-7.7); Neutrophil % 60.1 % (47-70); Platelet Count 196 K/mm3 (150-450); RBC Distribution Width CV 12.9 % (11.6-14.6); RBC Distribution Width SD 43.4 fl (35.1-43.9); Red Blood Count 4.83 M/mm3 (4.2-5.4); White Blood Count 9.3 K/mm3 (4.4-11.0)
[2022-10-12 15:01] LABS: ALB/GLOB Ratio 0.9 RATIO (0.9-2.4); AST(SGOT) 18 U/L (15-37); Alanine Aminotransfer ALT/SGPT 20 U/L (13-56); Albumin, Serum 3.2 g/dL (3.2-5.0); Alkaline Phosphatase 105 U/L (45-117); Anion Gap 8 (5-15); BUN 19 mg/dL (7-18); BUN/Creat Ratio 16.5 RATIO (10-20); Calcium,Total 8.7 mg/dL (8.5-10.1); Chloride 108 mmol/L (98-107); Creatinine, Serum 1.15 mg/dL (0.55-1.02); EST Glomerular Filtration Rate 49 mL/min (>60); Est Glom Filt Rate - Afr Amer 59 mL/min (>60); Globulin 3.7 g/dL (2.2-4.2); Glucose 127 mg/dL (74-106); Potassium 3.7 mmol/L (3.5-5.1); Protein, Total 6.9 g/dL (6.4-8.2); Sodium Level 142 mmol/L (136-145); Thyroid Stim Hormone (TSH) 2.02 uIU/mL (0.358-3.74)
== END | disposition home or self-care (01) ==
LOC: POLAB3 12:58
PROVIDERS: PCP Family Medicine Geriatric Medicine; Visit Provider Family Medicine Geriatric Medicine
DX: I10 Essential (primary) hypertension (principal); E55.9 Vitamin D deficiency, unspecified
CPT/HCPCS: 36415; 80053; 82306; 84443; 85025

== ENCOUNTER → 2023-04-13 | Outpatient (CLI) | payer MEDICARE, OTHER, SELFPAY ==
[2023-04-13 14:32] LABS: Absolute Lymphocyte Count 2.66 X10^3/uL (0.83-4.51); Absolute Neutrophil Count 6.1 X10^3/uL (2.0-7.7); Basophil# 0.08 X10^3/uL; Basophil% 0.8 % (0-1); Eosinophil# 0.16 X10^3/uL; Eosinophils% 1.6 % (0-5); Hematocrit 44.6 % (37-47); Hemoglobin 14.2 g/dL (12.0-15.0); Lymphocyte # 2.66 X10^3/ul (0.83-4.51); Lymphocyte % 27.3 % (19-41); Mean Corp Hgb Conc 31.8 g/dL (32-36); Mean Corpuscular Hgb 29.1 pg (27.0-32.0); Mean Corpuscular Volume 91.4 fL (81-99); Mean Platelet Vol. 11.5 fl (6.2-12.0); Monocyte# 0.75 X10^3/uL; Monocyte% 7.7 % (0-10); NRBC Flagged by Analyzer 0 % (0-5); Neutrophil # 6.08 X10^3/uL (2.7-7.7); Neutrophil % 62.3 % (47-70); Platelet Count 197 K/mm3 (150-450); RBC Distribution Width CV 12.9 % (11.6-14.6); RBC Distribution Width SD 43.3 fl (35.1-43.9); Red Blood Count 4.88 M/mm3 (4.2-5.4); White Blood Count 9.8 K/mm3 (4.4-11.0)
[2023-04-13 15:01] LABS: ALB/GLOB Ratio 0.9 RATIO (0.9-2.4); AST(SGOT) 13 U/L (15-37); Alanine Aminotransfer ALT/SGPT 14 U/L (13-56); Albumin, Serum 3.3 g/dL (3.2-5.0); Alkaline Phosphatase 110 U/L (45-117); Anion Gap 7 (5-15); BUN 16 mg/dL (7-18); BUN/Creat Ratio 13.6 RATIO (10-20); Calcium,Total 8.9 mg/dL (8.5-10.1); Chloride 106 mmol/L (98-107); Creatinine, Serum 1.18 mg/dL (0.55-1.02); EST Glomerular Filtration Rate 47 mL/min (>60); Est Glom Filt Rate - Afr Amer 57 mL/min (>60); Globulin 3.7 g/dL (2.2-4.2); Glucose 125 mg/dL (74-106); Potassium 3.9 mmol/L (3.5-5.1); Sodium Level 142 mmol/L (136-145); Thyroid Stim Hormone (TSH) 1.55 uIU/mL (0.358-3.74)
[2023-04-13 15:05] LABS: Vitamin D,25 Hydroxy 27.6 ng/mL
--- OUTSIDE RECORDS SUMMARY | 2023-04-13 16:29 | XMS RPT_ITS | CCD ---
Author Name Unknown Address [address] [place] [address] Organization [facility] Care Team Providers Care Service Counselor Name Role Phone NATHAN GUAMAN MD Unavailable Unavailable NATHAN GUAMAN MD Unavailable Unavailable Preston ADLER Unavailable UnavailPreston Powers Unavailable UnavailPreston Powers Unavailable UnavailNATHAN Perkins MD Unavailable Unavailable NATHAN GUAMAN MD Unavailable Unavailable HAUSSMAN, III ALVIN Unavailable Unavaila ble HAUSSMAN, III ALVIN Unavailable Unavaila ble HAMOR, III ALVIN Unavailable Unavaila Ludin Vega Admitting Unavailable Ludin Jordan Attending Unavailable Maggi Romero Primary Care Unavailable ALENA VASQUEZ Attending Unavailable Erinn Haney Unavailable Unavailable Free, Text Entry Unavailable Unavailable Taya Briggs Unavailable Unavailable Allergies Allergy Classification Reported Allergen(s) Allergy Type Date of Onset Reaction(s) Facility (3 sources) cimetidine; Translations: [TAGAMET] Drug Allergy Hives/[facility]rtic[facility] (3 sources) phenytoin; Translations: [DILANTIN] Drug Allergy Other [facility] Repository Medications Current Medications Medication Drug Class(es) Dates Sig (Normalized) Sig (Original) amLODIPine 5 mg oral tablet (1 source) Dihydropyridine Calcium Channel Harish take 1 tablet by mouth once daily amLODIPine 5 mg oral tablet ; 1 tab(s) orally once a day Quantity: 0 Refills: 0 Ordered: 27-May-2019 Deidre Wynne Generic Substitution Allowed latanoprost 0.05 mg/ml ophthalmic solution (1 source) Prostaglandin Analog take 1 drop(s) into the eye(s) once daily in the evening latanoprost 0.005% ophthalmic solution ; 1 drop(s) to each affected eye once a day (in the evening) Quantity: 0 Refills: 0 Ordered: 27-May-2019 Deidre Wynne Generic Substitution Allowed levETIRAcetam 250 mg oral tablet (1 source) take 1 tablet by mouth twice daily levETIRAcetam 250 mg oral tablet ; 1 tab(s) orally 2 times a day Quantity: 0 Refills: 0 Ordered: 27-May-2019 Deidre Wynne Generic Substitution Allowed metoprolol tartrate 50 mg oral tablet (1 source) beta-Adrenergic Harish take 1 tablet by mouth twice daily Metoprolol Tartrate 50 mg oral tablet ; 1 tab(s) orally 2 times a day Quantity: 0 Refills: 0 Ordered: 27-May-2019 Deidre Wynne Generic Substitution Allowed rosuvastatin calcium 20 mg oral tablet (1 source) HMG-CoA Reductase Inhibitor take 1 tablet by mouth once daily rosuvastatin 20 mg oral tablet ; 1 tab(s) orally once a day Quantity: 0 Refills: 0 Ordered: 27-May-2019 Deidre Wynne Generic Substitution Allowed valsartan 320 mg oral tablet (1 source) Angiotensin 2 Receptor Harish take 1 tablet by mouth once daily valsartan 320 mg oral tablet ; 1 tab(s) orally once a day Quantity: 0 Refills: 0 Ordered: 27-May-2019 Deidre Wynne Generic Substitution Allowed Completed/Discontinued Medications Medication Drug Class(es) Dates Sig (Normalized) Sig (Original) ciprofloxacin 500 mg oral tablet (1 source) Quinolone Antimicrobial Start: 10-30-2019 End: 11-08-2019 take 1 tablet by mouth twice daily Cipro 500 mg oral tablet ; 1 tab(s) orally 2 times a day Quantity: 20 Refills: 0 Ordered: 30-Oct-2019 Ludin Jordan Start: 30-Oct-2019 End: 08-Nov-2019 Generic Substitution Allowed Comments: Avoid prolonged or excessive exposure to direct and/or artificial sunlight while taking this medication.Check with your doctor before becoming .Do not take dairy products, antacids, or iron preparations within one hour of this medication.Finish all this medication unless otherwise directed by prescriber.Medicat ion should be taken with plenty of water. Problems Active Problems Problem Classification Problem Date Documented Da te Episodic/Chronic Unclassified (2 sources) URINARY SYMPTOMS, FOOTE 02-12-2021 Past or Other Problems Problem Classification Problem Date Documented Da te Episodic/Chronic Other non-traumatic joint disorders (1 source) Shoulder stiff; Translations: [Stiffness of right shoulder joint] Episodic Unclassified (1 source) Chronic pain of right upper limb; Translations: [Chronic right shoulder pain] Results Test Name Value Interpretation Reference Range Facil ity Vital Signs Date Time Vital Sign Value Performing Clinician Facility 02-12-2021 14:32-0500 Body height 144.7 cm Text Entry [facility] 02-12-2021 14:32-0500 Body temperature 98.06 [degF] Text Entry [facility] 02-12-2021 14:32-0500 Diastolic blood pressure 90 mm[Hg] Text Entry [facility] 02-12-2021 14:32-0500 Heart rate 83 /min Text Entry [facility] 02-12-2021 14:32-0500 Respiratory rate 16 /min Text Entry [facility] 02-12-2021 14:32-0500 SaO2% (BldA) [Mass fraction] 98 % Text Entry [facility] 02-12-2021 14:32-0500 Systolic blood pressure 193 mm[Hg] Text Entry [facility] Encounters Encounter Date Encounter Type Care Provider Facility Start: 02-12-2021 End: 02-12-2021 Emergency department patient visit Taya Chester [facility] Start: 04-30-2019 Patient encounter procedure ALENA SILVESTRE [facility] Start: 05-30-2018 End: 05-30-2018 Patient encounter procedure Ludin Jordan Facility:[facility] Start: 01-08-2017 End: 01-08-2017 Emergency department patient visit NATHAN CAMPOS [facility] Start: 12-19-2016 End: 12-19-2016 Ambulatory NATHAN CAMPOS [facility] Plan of Treatment Date Care Activity Detail Author [facility] Work Phone: NEGATED: Highlighted row has been ruled out! Planned Goals not documented [facility] Work Phone: Payers Date Payer Category Payer Medicare 2018 Unknown 1945 Unknown [id number] Medicare [id number] Social History Date Type Detail Facility Assertion Unknown if ever smoked [facility] Work [facility]: Tobacco smoking consumption unknown [facility] Functional Status Date Assessment Result Facility NEGATED: Highlighted row Functional performance Functional status health issues are not documented Disease [facility] Work Phone: Mental Status Date Assessment Result Facility NEGATED: Highlighted row Cognitive function [Interpretation] Cognitive status health issues are not documented Disease [facility] Work Phone: Summary Purpose Family History No Family History Records FoundNo Family History Records FoundNo Family History Records FoundNo Family History Records FoundNo Family History Records FoundNo Family History Records FoundNo Family History Records FoundNo Family History Records Found Advance Directives No Advanced Directives Records FoundNo Advanced Directives Records FoundNo Advanced Directives Records FoundNo Advanced Directives Records FoundNo Advanced Directives Records FoundNo Advanced Directives Records FoundNo Advanced Directives Records FoundNo Advanced Directives Records Found Hospital Course Note Therapy Diagnosis Assessed C hronic right shoulder pain (719.41,338.29) (M25.511,G89.29) Stiffness of right shoulder joint (719.51) (M25.611) Insurance Insurance reviewed Visit number: 6 Authorization not required after evaluation POC: 07/14 Medicare-AARP- [employer] Supervising PT: Erinn Haney PT, DPT, Cert DN . Subjective Patient reports: Pt notes she things have improved since started physical therapy and feels she is ready for D/C. Patient rates current pain 0/10. Precautions: none. Fall Risk: low Objective Ortho QuickDASH: 13.64-->9 Shoulder AROM: seated/supine Flex: 120/140-->155 ABD: 120/138 compensation-->175 ER: to mid spine/54 -->74 IR: to central lumbar spine/90-->90 Shoulder PROM: Flex: 130-->175 ABD: 120-->180 ER: 50 -->80 IR: 85-->90 MMT: Shld Flex: 4-/5 -->4/5 Shld ABD: 4-/5 mild pain-->4/5 Shld IR: 4/5 -->4+/5 Shld ER: 4/5-->4+/5 Elbow Flex: 4/5-->5/5 Elbow Ext: 4/5-->5/5 Palpation: restriction and MTrP's throughout [place], posterior scap musculature, deltoid, and samara (more content not included)... Additional Source Comments INFORMATION SOURCE (unrecogn ized section and content) DATE CREATED AUTHOR AUTHOR'S ORGANIZ ATION 08/02/2017 [facility] DATE CREATED AUTHOR AUTHOR'S ORGANIZ ATION 05/30/2018 [facility] DATE CREATED AUTHOR AUTHOR'S ORGANIZ ATION 04/19/2019 [facility] DATE CREATED AUTHOR AUTHOR'S ORGANIZ ATION 04/30/2019 [facility] DATE CREATED AUTHOR AUTHOR'S ORGANIZ ATION 10/18/2019 [facility] ([place] DATE CREATED AUTHOR AUTHOR'S ORGANIZ ATION 02/17/2021 [facility] DATE CREATED AUTHOR AUTHOR'S ORGANIZ ATION 02/18/2021 [facility] <item> Privacy Markings (unrecogniz ed section and content) Section Author: Vandana Garcia PROHIBITION ON REDISCLOSURE OF CONFIDENTIAL INFORMATION This notice accompanies a disclosure of information concerning a client made to you with the consent of such client. FOR RECORDS PERTAINING TO PATIENTS WHO ARE OR HAVE BEEN ENROLLED IN A CHEMICAL DEPENDENCY/SUBSTANCEABUSE PROGRAM, SOME INFORMATION MAY BE OMITTED. This clinical summary was aggregated from multiple sources. Caution should be exercised in using it in the provision of clinical care. This summary normalizes information from multiple sources, and as a consequence, information in this document may materially change the coding, format and clinical context of patient data. In addition, data may be omitted in some cases. CLINICAL DECISIONS SHOULD BE BASED ON THE PRIMARY CLINICAL RECORDS. [facility]. provides no warranty or guarantee of the accuracy or completeness of information in this document.
== END | disposition home or self-care (01) ==
LOC: POLAB3 13:05
PROVIDERS: PCP Family Medicine Geriatric Medicine; Visit Provider Family Medicine Geriatric Medicine
DX: I10 Essential (primary) hypertension (principal); E55.9 Vitamin D deficiency, unspecified
CPT/HCPCS: 36415; 80053; 82306; 84443; 85025

== ENCOUNTER → 2023-06-20 | Outpatient (CLI) | payer MEDICARE, OTHER, SELFPAY ==
--- NOTE | 2023-06-20 12:54 | MRI_ITS ---
STUDY: MRI BRAIN WITH AND WITHOUT CONTRAST REASON FOR EXAM: Female, 78 years old. follow-up meningioma TECHNIQUE: Standardized multiplanar fat and water weighted pulse sequences were obtained. IV 19ml clariscan was administered for the contrast portion of the examination. COMPARISON: February 17, 2021 FINDINGS: Mild atrophy and periventricular white matter ischemic change without mass effect or restricted diffusion.. Normal bilateral basal ganglia. Normal thalami. There is no extra-axial fluid accumulation. Normal flow voids within the major intracranial circulation suggesting patency by spin echo criteria. Normal venous enhancement. Heterogeneously enhancing dural-based mass in the left frontal lobe measuring approximately 2.4 x 1.63 x 2 cm consistent with known meningioma. Normal sella turcica, pituitary gland, infundibular stalk, optic chiasm and hypothalamus. Normal tectal plate and pineal gland. Normal midbrain, kelvin and medulla. Normal cerebellum. Normal basal cisterns. Normal bilateral temporal bones. Normal bilateral internal auditory canals. Postsurgical changes of the left orbit. Normal visualized paranasal sinuses. Normal calvarium and skull base. Normal visualized soft tissue structures. Normal visualized upper cervical spine. Stable appearance to meningioma since prior exam and no other significant change MRI/Brain W/WO Contrast IMPRESSION: Persistent left frontal meningioma unchanged since previous study. Mild periventricular white matter ischemic change without evidence for acute infarct Electronically Signed: Fercho Hinojosa MD at 17:40 EDT ,
--- NOTE | 2023-06-20 14:14 | CDU_ITS ---
Reason For Study: episodic left eye vision loss Rt. Velocities/BP Lt. Velocities/BP Prox CCA 78.7/11.6 cm/sec. Prox CCA 64.5/16.3 cm/sec. Mid CCA 82.5/12.6 cm/sec. Mid CCA 65.5/13.5 cm/sec. Dist CCA 58.9/6.0 cm/sec. Dist CCA 46.6/10.7 cm/sec. Prox ICA 48.5/11.6 cm/sec. Prox ICA 34.3/9.7 cm/sec. Mid ICA 49.4/12.6 cm/sec. Mid ICA 48.5/10.7 cm/sec. Dist ICA 35.2/11.6 cm/sec. Dist ICA 69.2/16.7 cm/sec. Rt. ICA/CCA = .6. Lt. ICA/CCA = 1.1. Prox ECA 57.9/12.6 cm/sec. Prox ECA 75.9/6.0 cm/sec. Rt. Vert. 52.2/10.7 cm/sec. Lt. Vert. 41.0/12.4 cm/sec. Right Extracranial There is intimal thickening but no significant atherosclerotic plaque noted in the right common carotid artery. There is intimal thickening but no significant atherosclerotic plaque noted in the right internal carotid artery. There is intimal thickening but no significant atherosclerotic plaque noted in the right external carotid artery. Antegrade flow is noted in the right vertebral artery. Left Extracranial There is intimal thickening but no significant atherosclerotic plaque noted in the left common carotid artery. There is heterogeneous, irregular atherosclerotic plaque noted in the left internal carotid artery. There is intimal thickening but no significant atherosclerotic plaque noted in the left external carotid artery. Antegrade flow is noted in the left vertebral artery. Procedure Carotid Duplex 70486. This is a Carotid Duplex examination using B-mode, color flow and specral Doppler. The exam was diagnostic. Exam performed in department. VL/Carotid Duplex Ultrasound Interpretation Summary Normal right extracranial internal carotid. Mild (<50%) stenosis left extracranial internal carotid. Patent and antegrade vertebrals bilaterally. Ordering Physician: Dylon Zee Referring Physician: Dylon Zee Performed By: Jethro Rodriguez RVT
[2023-06-20 17:56] LABS: CREATININE FINGERSTICK < 1.0 mg/dL (0.55-1.02)
== END | disposition home or self-care (01) ==
LOC: MRI 12:51
PROVIDERS: PCP Family Medicine Geriatric Medicine; Referring Provider Psychiatry & Neurology Neurology; Visit Provider Psychiatry & Neurology Neurology
DX: D32.9 Benign neoplasm of meninges, unspecified (principal); G45.9 Transient cerebral ischemic attack, unspecified; H53.132 Sudden visual loss, left eye; R20.2 Paresthesia of skin
CPT/HCPCS: 70553; 93880; A9575

== ENCOUNTER → 2023-10-18 | Outpatient (CLI) | payer MEDICARE, OTHER, SELFPAY ==
[2023-10-18 13:13] LABS: Absolute Lymphocyte Count 2.81 X10^3/uL (0.83-4.51); Absolute Neutrophil Count 5.3 X10^3/uL (2.0-7.7); Basophil# 0.08 X10^3/uL; Basophil% 0.8 % (0-1); Eosinophil# 0.28 X10^3/uL; Hematocrit 44.3 % (37-47); Hemoglobin 13.7 g/dL (12.0-15.0); Lymphocyte # 2.81 X10^3/ul (0.83-4.51); Lymphocyte % 29.8 % (19-41); Mean Corp Hgb Conc 30.9 g/dL (32-36); Mean Corpuscular Hgb 28.4 pg (27.0-32.0); Mean Corpuscular Volume 91.7 fL (81-99); Mean Platelet Vol. 11.1 fl (6.2-12.0); Monocyte# 0.91 X10^3/uL; Monocyte% 9.7 % (0-10); NRBC Flagged by Analyzer 0 % (0-5); Neutrophil # 5.32 X10^3/uL (2.7-7.7); Neutrophil % 56.4 % (47-70); Platelet Count 191 K/mm3 (150-450); RBC Distribution Width CV 13.1 % (11.6-14.6); RBC Distribution Width SD 44.3 fl (35.1-43.9); Red Blood Count 4.83 M/mm3 (4.2-5.4); White Blood Count 9.4 K/mm3 (4.4-11.0)
[2023-10-18 14:09] LABS: ALB/GLOB Ratio 0.9 RATIO (0.9-2.4); AST(SGOT) 17 U/L (15-37); Alanine Aminotransfer ALT/SGPT 15 U/L (13-56); Albumin, Serum 3.3 g/dL (3.2-5.0); Alkaline Phosphatase 106 U/L (45-117); Anion Gap 5 (5-15); BUN 18 mg/dL (7-18); BUN/Creat Ratio 14.6 RATIO (10-20); Calcium,Total 9.3 mg/dL (8.5-10.1); Chloride 109 mmol/L (98-107); Creatinine, Serum 1.23 mg/dL (0.55-1.02); EST Glomerular Filtration Rate 45 mL/min (>60); Est Glom Filt Rate - Afr Amer 54 mL/min (>60); Globulin 3.8 g/dL (2.2-4.2); Glucose 114 mg/dL (74-106); Protein, Total 7.1 g/dL (6.4-8.2); Sodium Level 141 mmol/L (136-145)
--- NOTE | 2023-10-18 14:20 | RAD_ITS ---
STUDY: X-RAY - LUMBAR SPINE REASON FOR EXAM: Female, 78 years old. Radiculopathy. TECHNIQUE: 5 view(s) of the lumbar spine were obtained. COMPARISON: None FINDINGS: Osteopenia. Normal lordosis. No scoliosis. 3 mm of anterolisthesis of L3 on L4. Diffuse mild lower thoracic and lumbosacral facet sclerosis. Mild intervertebral disc space narrowing of the lower thoracic spine and most prominently at L2-3 and L3-4. Cholecystectomy clips. Minimal vascular calcification. RAD/L/S Spine Min 4 Views IMPRESSION: Osteopenia with mild lower thoracic and lumbosacral spondylosis. Electronically Signed: Patricio Charles MD at 15:29 EDT ,
[2023-10-18 15:15] LABS: Vitamin D,25 Hydroxy 38.6 ng/mL
== END | disposition home or self-care (01) ==
PROVIDERS: PCP Family Medicine Geriatric Medicine; Referring Provider Family Medicine Geriatric Medicine; Visit Provider Family Medicine Geriatric Medicine
DX: M54.17 Radiculopathy, lumbosacral region (principal); I10 Essential (primary) hypertension; E55.9 Vitamin D deficiency, unspecified
CPT/HCPCS: 36415; 72110; 80053; 82306; 84443; 85025

== ENCOUNTER 2024-01-22 15:30 | Outpatient (RCR) | payer MEDICARE, OTHER, SELFPAY ==
--- NOTE | 2023-11-20 16:45 | HP.PTEVAL_ITS ---
Patient's Visit Information Visit Information Visit Information: COLE CHAVARRIA is a 78 year old F referred to Physical Therapy by Dr. Diogenes Walker MD with a diagnosis of LBP and L hip OA. Date of Evaluation: 11/20/23 Physical Therapist: Francisco Javier Martin, PT, ATC Visit Plan Frequency: 2-3x /Week Duration: 4-6 Weeks Plan: Aquatic therapy consisting of L hip stretching and strengthening, core stab ex's, and HEP Subjective Subjective: Pt reports she has had L hip pain for approximately 3 months. Pt reports her left hip will catch on her which is really painful. Pt denies any tingling or numbness at this time. Pt notes she had x-rays performed, but was never informed on what she has. Pt notes she is very nervous here because she was ordered aquatic therapy and she cant swim. Pt reports stair negotiation increases her pain. [place], so she only has stairs to her basement which she doesn't use. Pt denies sleep difficulty at this time. Pt notes prolonged standing and ambulation are difficult secondary to pain. 8/10 pain while sitting here in the clinic, 10/10 at worst (when her hip catches on her.) Pain L hip/glute region: Pain Intensity (Out of 10): 8 Pain Intensity Range: 10 Objective Objective: Neuro: B LE sensation is WNL to light touch. B patellar reflex= 1/3 MMT: B LE's are grossly 4-/5 throughout. ROM: Pt is severely limited with extension of the L/S. All other motions are WNL Repeated movements. SKTC/DKTC decreased pain in L glute region Balance/Special Test Scores Oswestry Low Back Score: 14 Goals Goal 1:: Decrease LBP x 50% to aid with sleep Goal Time Frame: 4-6 Weeks Goal 2:: Decrease L hip pain x 50% to aid with ambulation Goal Time Frame: 4-6 Weeks Goal 3:: Pt will be able to negotiate 10 stairs reciprocally to aid with I at home Goal Time Frame: 4-6 Weeks Goal 4:: Increase B LE strength x 1 grade to aid with stair negotiation Goal Time Frame: 4-6 Weeks Goal 5:: I with HEP Goal Time Frame: 4-6 Weeks Rehabilitation Potential Physical Therapy Diagnosis: Pt has L glute pain, weakness in L LE, and difficulty with car transfers secondary to degenerative changes respectively Rehabilitation Potential: Good Anticipated Interventions Patient/Client Instruction: Educate patient on: Condition and Plan of Care For the Purpose of:: To improve self management Therapeutic Exercise to Include: Strength training, Endurance training, Postural training, Flexibilty training, In an aquatic setting and Dynamic Lumbar Stabilization For the Purpose of:: To decrease pain, To increase ROM and To improve ability to perform ADL's Text: Thank you for the opportunity to evaluate your patient. For Medicare and Medicare HMO plans, please review the plan of care and approve it. It will need to be FAXED BACK to us at [phone] for Medicare purposes. For Medicare only, by signing this I certify the plan of care. Please let me know if there are questions or concerns regarding this plan of care. Physician Signature: Date:
--- NOTE | 2024-03-15 12:47 | HP.PT.NRP ---
Patient Information Patient Information: COLE CHAVARRIA was seen in my office for initial evaluation on 11/20/23. The following Plan of Care was established for this patient: POC Established Initial Frequency: 2-3x /Week Initial Duration: 4-6 Weeks Anticipated Interventions Patient/Client Instruction: Educate patient on: Condition and Plan of Care For the Purpose of:: To improve self management Therapeutic Exercise to Include: Strength training, Endurance training, Postural training, Flexibilty training, In an aquatic setting and Dynamic Lumbar Stabilization For the Purpose of:: To decrease pain, To increase ROM and To improve ability to perform ADL's Last Seen Last Seen: This patient was last seen in our office . Pertinent comments regarding their Physical therapy will appear below: Pt has not returned through todays date for 30 days and is discontinued at this time. At this point I will be discontinuing this patient from physical therapy. I would be happy to see this patient again in the future if found appropriate by the physician. Thank you! Francisco Javier Martin, PT, ATC Balance/Gait/Functional tests Balance/Special Test Scores Oswestry Low Back Score: 4
== END 2024-01-22 19:00 | disposition home or self-care (01) ==
LOC: PT 15:30
PROVIDERS: PCP Family Medicine Geriatric Medicine; Referring Provider Specialist; Visit Provider Specialist
DX: M16.12 Unilateral primary osteoarthritis, left hip (principal); M54.50 Low back pain, unspecified; M54.16 Radiculopathy, lumbar region
CPT/HCPCS: 97113; 97161; 97530

== ENCOUNTER → 2024-08-06 | Outpatient (CLI) | payer MEDICARE, OTHER, SELFPAY ==
[2024-08-06 17:49] LABS: Hematocrit 43.3 % (37-47); Hemoglobin 13.7 g/dL (12.0-15.0); Immature Granulocytes Count 0.030 X10^3/uL (0.0-0.0); Mean Corp Hgb Conc 31.6 g/dL (32-36); Mean Corpuscular Volume 91.4 fL (81-99); Mean Platelet Vol. 11.1 fl (6.2-12.0); NRBC Flagged by Analyzer 0 % (0-5); Platelet Count 210 K/mm3 (150-450); RBC Distribution Width CV 13.0 % (11.6-14.6); RBC Distribution Width SD 43.8 fl (35.1-43.9); Red Blood Count 4.74 M/mm3 (4.2-5.4); White Blood Count 9.2 K/mm3 (4.4-11.0)
[2024-08-06 18:05] LABS: AST(SGOT) 21 U/L (<=31); Alanine Aminotransfer ALT/SGPT 11 U/L (<=34); Albumin, Serum 4.1 g/dL (3.4-4.8); Alkaline Phosphatase 108 U/L (35-104); Anion Gap 11 (5-15); BUN 12 mg/dL (4-19); BUN/Creat Ratio 11.2 RATIO (10-20); Calcium,Total 9.5 mg/dL (7.6-11.0); Carbon Dioxide 27.4 mmol/L (21.0-32.0); Chloride 103 mmol/L (98-108); Globulin 2.8 g/dL (2.2-4.2); Glucose 110 mg/dL (70-99); Potassium 4.5 mmol/L (3.3-5.1); Vitamin D,25 Hydroxy 32.9 ng/mL (30-100)
== END | disposition home or self-care (01) ==
LOC: LAB 15:54
PROVIDERS: PCP Family Medicine Geriatric Medicine; Referring Provider Family Medicine Geriatric Medicine; Visit Provider Family Medicine Geriatric Medicine
DX: I10 Essential (primary) hypertension (principal); E55.9 Vitamin D deficiency, unspecified
CPT/HCPCS: 36415; 80053; 82306; 84443; 85025

== ENCOUNTER → 2024-10-22 | Outpatient (CLI) | payer MEDICARE, OTHER, SELFPAY ==
[2024-10-22 13:30] LABS: Hematocrit 44.3 % (37-47); Hemoglobin 14.1 g/dL (12.0-15.0); Immature Granulocytes Count 0.030 X10^3/uL (0.0-0.0); Mean Corp Hgb Conc 31.8 g/dL (32-36); Mean Corpuscular Volume 91.2 fL (81-99); Mean Platelet Vol. 11.0 fl (6.2-12.0); NRBC Flagged by Analyzer 0 % (0-5); Platelet Count 205 K/mm3 (150-450); RBC Distribution Width CV 13.2 % (11.6-14.6); RBC Distribution Width SD 44.1 fl (35.1-43.9); Red Blood Count 4.86 M/mm3 (4.2-5.4); White Blood Count 10.6 K/mm3 (4.4-11.0)
[2024-10-22 14:18] LABS: AST(SGOT) 20 U/L (<=31); Alanine Aminotransfer ALT/SGPT 11 U/L (<=34); Albumin, Serum 4.0 g/dL (3.4-4.8); Alkaline Phosphatase 115 U/L (35-104); Anion Gap 12 (5-15); BUN 13 mg/dL (4-19); BUN/Creat Ratio 12.7 RATIO (10-20); Calcium,Total 9.4 mg/dL (7.6-11.0); Carbon Dioxide 24.6 mmol/L (21.0-32.0); Chloride 104 mmol/L (98-108); Globulin 3.1 g/dL (2.2-4.2); Glucose 101 mg/dL (70-99); Potassium 4.3 mmol/L (3.3-5.1); Vitamin D,25 Hydroxy 39.4 ng/mL (30-100)
[2024-10-22 21:19] LABS: Xtra Tube Kwok EXTRA TUBE
== END | disposition home or self-care (01) ==
LOC: POLAB3 13:19
PROVIDERS: PCP Family Medicine Geriatric Medicine; Visit Provider Family Medicine Geriatric Medicine
DX: I10 Essential (primary) hypertension (principal); E55.9 Vitamin D deficiency, unspecified
CPT/HCPCS: 36415; 80053; 82306; 84443; 85025

== ENCOUNTER → 2024-11-07 | Outpatient (CLI) | payer MEDICARE, OTHER, SELFPAY | END | disposition home or self-care (01) | LOC: POLAB3 16:24 | PROVIDERS: PCP Family Medicine Geriatric Medicine; Visit Provider Family Medicine Geriatric Medicine | DX: T14.8XXA Other injury of unspecified body region, initial encounter (principal); W57.XXXA Bitten or stung by nonvenomous insect and other nonvenomous arthropods, initial encounter | CPT/HCPCS: 36415; 86617; A4216 ==

== ENCOUNTER → 2024-11-20 | Outpatient (CLI) | payer MEDICARE, OTHER, SELFPAY ==
[2024-11-20 14:38] LABS: Syphilis Antibodies Nonreactive (Nonreactive)
[2024-11-20 15:13] LABS: Staph aureus DNA By PCR NEGATIVE (Negative)
== END | disposition home or self-care (01) ==
LOC: POLAB3 13:50
PROVIDERS: PCP Family Medicine Geriatric Medicine; Visit Provider Family Medicine Geriatric Medicine
DX: Z22.39 Carrier of other specified bacterial diseases (principal)
CPT/HCPCS: 36415; 86780; 87640

== ENCOUNTER 2025-01-14 15:26 | Emergency (ER) | payer MEDICARE, OTHER, SELFPAY ==
[2025-01-14 15:27] VITALS: BP 202/99; PULSE 119; RESP 16; TEMP 36.3; O2SAT 97; BMI 39.2
--- NOTE | 2025-01-14 16:11 | CT_ITS ---
EXAM: CT BRAIN/HEAD; SINUS/FACIAL BONE; SPINE CERVICAL WITHOUT CONTRAST CLINICAL HISTORY: FALL, R EYE SWELLING COMPARISON: Brain MRI 06/20/2023. TECHNIQUE: Noncontrast CT images of the head, maxillofacial structures, and cervical spine with multiplanar reconstructions. Dose reduction techniques were used including intermediate exposure control (AEC),iterative reconstruction technique, and/or mA and/or KV dose adjustments based on patient's size. FINDINGS: HEAD/FACE: No acute intracranial hemorrhage, extra-axial collection, mass effect or evidence of acute infarct. Ventricular and sulcal size and configuration are within normal limits for age. Mild chronic microangiopathic changes in the supratentorial white matter. Atherosclerotic vascular calcifications. Grossly stable size/appearance of a calcified meningioma at the high left frontal convexity, which measures approximately 22 x 22 x 20 mm (AP, TV, CC). Localized mass-effect on the subjacent left superior and middle frontal gyri but no significant parenchymal edema appreciated. Mild right frontal/supraorbital scalp contusional changes. The globes appear intact, with prior bilateral cataract surgery. No intraorbital hematoma or emphysema. No acute skull base, calvarial, or maxillofacial bone fracture. Well-aerated paranasal sinuses and mastoid air cells, with mild mucosal thickening in the floor of right maxillary sinus. CERVICAL SPINE: No acute fracture or subluxation. Positional and/or degenerative straightening of the cervical lordosis. Mild multilevel spondylotic changes with varying degrees of disc space narrowing, scattered small Schmorl's nodes and/or subchondral cysts, anterior osteophytosis, uncovertebral spurring and hypertrophic facet arthropathy. No prevertebral soft tissue swelling. CT/Spine Cervical without Contras IMPRESSION: 1. No acute intracranial abnormality. 2. Grossly stable left frontal convexity calcified meningioma. 3. Mild right frontal/supraorbital scalp contusional changes. 4. No acute maxillofacial fracture or orbital injury. 5. No acute cervical spine fracture or malalignment. Mild spondylotic changes. Reading Location: [id number]
--- NOTE | 2025-01-14 16:11 | EX.ED.DYSGE1 ---
HPI History of Present Illness Chief Complaint: Fall Narrative Narrative: Patient is a 79-year-old female with a past medical history hypertension, glaucoma who presented to the emergency department with a chief complaint of fall hitting her head. She states that this morning she was getting her hair done and on the way and she slipped and fell on ice she states that she hit her head she did not pass out she states that she was able to get up and go in to have her hair done. She states that afterward she went home and notes that she was talking to a friend who then advised her to be checked out. She called EMS to have come out to evaluate her and they state that they were concerned that she may have a head bleed therefore they sent her here to be further evaluated. Patient denies any headaches denies any blood thinning medications. States that she is having some right knee pain and states that she chronically has left knee pain. [facility] Medical History Vision problems Glaucoma History of gallstones History of UTI Seasonal allergies Hypertension Home Medications ?Medication ?Instructions ?Recorded ?Last Taken ?Type valsartan 320 mg tablet 320 mg PO DAILY 03/15/15 01/13/25 History cholecalciferol (vitamin D3) 50 2,000 unit PO DAILY 10/25/16 01/13/25 History mcg (2,000 unit) capsule aspirin 81 mg tablet,delayed 81 mg PO DAILY 01/28/21 01/13/25 History release (Adult Aspirin Regimen) polyvinyl alcohol 1.4 % eye drops 1 drp ophthalmic (eye) TID-QID PRN 01/28/21 01/13/25 History dry eye(s) levetiracetam 250 mg tablet 250 mg PO DAILY #90 tabs 08/19/24 01/14/25 Rx rosuvastatin 20 mg tablet 20 mg PO QDAY 08/19/24 01/13/25 History amlodipine 5 mg tablet 5 mg PO BID 01/14/25 Unknown History latanoprost 0.005 % eye drops 1 drp RIGHT EYE QHS 01/14/25 01/13/25 History metoprolol tartrate 100 mg tablet 100 mg PO BID 01/14/25 01/13/25 History Allergy/AdvReac Type Severity Reaction Status Date / Time phenytoin sodium (From Allergy Intermediate Hives Verified 01/14/25 15:28 Dilantin) cimetidine HCl (From Tagamet) Allergy Mild Hives Verified 01/14/25 15:28 losartan (Losartan) Allergy Itching Verified 01/14/25 15:28 Family History Grandmother Cerebral aneurysm Grandmother CVA (cerebral vascular accident) Surgical History History of cholecystectomy History of cataract extraction History of total left knee replacement History of tonsillectomy Social History Smoking Status: Never smoker Electronic Cigarette Use: not used second hand exposure: No alcohol intake: never substance use type: does not use ROS ROS ED ROS Narrative Constitutional: Denies any headache, lightness, dizziness confusion or chills Eyes: Denies double vision Cardiovascular: Denies chest pain Respiratory: Denies shortness of breath Abdomen: Denies nausea vomit diarrhea : Denies urinary symptoms Neurological: Denies any numbness, wheeze, tingling Musculoskeletal: Denies complains of right knee pain as noted above Skin: Complains of swelling around her right eye EXAM Physical Exam Narrative Exam Narrative: General: Patient was lying in bed rest comfortably did not appear to be in acute distress Head: Atraumatic, normocephalic Eyes: PERRL bilaterally, EOMI bilaterally, no conjunctival injection noted, patient has mild soft tissue swelling above her right eye with some ecchymosis noted no raccoon eyes no Perera sign Neck: Soft, supple, trachea midline, no tenderness palpation midline of the cervical spine Cardiovascular: Patient tachycardic with a regular rhythm Respiratory: Clear to auscultation bilaterally Abdomen: Soft, nondistended, nontender to palpation Musculoskeletal: Patient has tenderness palpation over the bilateral knees although bony prominence palpated joints taken through full range of motion no pain elicited, no tenderness palpation midline of the thoracic lumbar spine Extremities: +4/5 strength noted about upper lower extremities Neurological: Patient following commands knew that she was at [facility] year is 2024 NIH of 0 GCS 15 sensation grossly intact Skin: Warm, dry, see eyes Const Vital Signs: 01/14/25 15:27 01/14/25 16:55 01/14/25 17:26 Temperature 97.3 F L 98.2 F Temperature Source Temporal Oral Pulse Rate 119 H 103 H Respiratory Rate 16 20 H Respiratory Effort Normal Blood Pressure 202/99 H 159/83 H Blood Pressure Mean 133 108 Pulse Ox 97 100 Oxygen Delivery Method Room Air Room Air Room Air MDM MDM MDM Narrative Medical decision making narrative: Patient is a 71-year-old female who presented to the emergency department the chief complaint of fall slipping and hitting her head earlier today. On the differential diagnosis includes but not limited to intracranial hemorrhage, concussion, forehead contusion. Once workup is obtained and reviewed she will be reevaluated. Patient states that she is not anything for pain. Patient's x-ray of her left knee reviewed by myself by radiology showed left total knee arthroplasty no fracture or dislocation. Patient's right knee x-ray reviewed by myself and by radiology which showed moderate arthritis of the patellofemoral joint and severe arthritis of the medial joint space of the knee noted there is widening of the lateral joint space compartment of the knee suggesting instability. Patient on exam does not have significant instability noted and she notes that she has some laxity in her knee on that side which has been there for significant time this is not new. Patient CT facial was reviewed showed no acute fractures of the face, CT head and cervical spine was also reviewed which showed no acute cranial normality no acute cervical spine fracture or malalignment noted. Did discuss results with the patient she would like to go home at this point time. She is advised to follow-up with her physician and return with worsening symptoms or concerns. She is agreeable to plan all course concerns answered she was discharged home in stable condition Radiography Diagnostic Testing: Clinical Impression(s) from Imaging Studies Brain CT 01/14/25 16:11 IMPRESSION: 1. No acute intracranial abnormality. 2. Grossly stable left frontal convexity calcified meningioma. 3. Mild right frontal/supraorbital scalp contusional changes. 4. No acute maxillofacial fracture or orbital injury. 5. No acute cervical spine fracture or malalignment. Mild spondylotic changes. Reading Location: [id number] Cervical Spine CT 01/14/25 16:11 IMPRESSION: 1. No acute intracranial abnormality. 2. Grossly stable left frontal convexity calcified meningioma. 3. Mild right frontal/supraorbital scalp contusional changes. 4. No acute maxillofacial fracture or orbital injury. 5. No acute cervical spine fracture or malalignment. Mild spondylotic changes. Reading Location: [facility] Facial/Sinus 01/14/25 16:11 IMPRESSION: 1. No acute intracranial abnormality. 2. Grossly stable left frontal convexity calcified meningioma. 3. Mild right frontal/supraorbital scalp contusional changes. 4. No acute maxillofacial fracture or orbital injury. 5. No acute cervical spine fracture or malalignment. Mild spondylotic changes. Reading Location: [facility] Knee X-Ray 01/14/25 16:30 IMPRESSION: 1. Moderate arthritis of the patellofemoral joint and severe arthritis of the medial joint space compartment of the knee. 2. There is widening of the lateral joint space compartment of the knee suggesting instability. Reading Location: [place] [address] Knee X-Ray 01/14/25 16:30 IMPRESSION: Normal-appearing left total knee arthroplasty. Reading Location: [place] [id number] Discharge Plan Triage Chief Complaint: Fall ED Provider: Gary Mensah Dx/Rx/DC Orders Clinical Impression: Fall, Ecchymosis of right eye, Bilateral knee pain, HTN (hypertension) Prescriptions: No Action aspirin [Adult Aspirin Regimen] 81 mg tablet,delayed release (DR/EC) 81 mg PO DAILY polyvinyl alcohol 1.4 % drops 1 drp ophthalmic (eye) TID-QID PRN (Reason: dry eye(s)) Rx Instructions: 1 drop in left eye QID rosuvastatin 20 mg tablet 20 mg PO QDAY levetiracetam 250 mg tablet 250 mg PO DAILY Qty: 90 3RF valsartan 320 MG tablet 320 mg PO DAILY Patient Comments: BLOOD PRESSURE cholecalciferol (vitamin D3) 2,000 UNIT capsule 2,000 unit PO DAILY Patient Comments: SUPPLEMENT latanoprost 0.005 % drops 1 drp RIGHT EYE QHS metoprolol tartrate 100 mg tablet 100 mg PO BID amlodipine 5 mg tablet 5 mg PO BID Primary Care Provider: Hermes Engle Chi Referrals: Hermes Engle Chi, MD [Primary Care Provider, Geriatrics] Activity Restrictions/Additional Instructions: Your CT of your head, neck, face did not show any acute abnormalities today no broken bones. Your x-ray of your knees did not show any acute broken bones. Follow-up your doctors outpatient setting take your medications when you get home as prescribed. Rotate Tylenol and ibuprofen [id number] for mild to moderate pain when you do this you can take something every 3 hours max dose Tylenol 24 hours 4000 mg max dose of ibuprofen in 24 hours 3200 mg. Return with worsening symptoms or any other concern Print Language: Belarusian Disposition Disposition: Home, Self Care
--- NOTE | 2025-01-14 16:30 | RAD_ITS ---
PROCEDURE: KNEE 4 OR MORE VIEWS 01/14/2025 REASON FOR EXAM: FALL TECHNIQUE: Procedure Code: RADKN Modality: DX Procedure: KNEE 4 OR MORE VIEWS Laterality: Right COMPARISON: None FINDINGS: Images of the right knee demonstrate no evidence of fracture or dislocation. There is moderate arthritis of the patellofemoral joint. There is severe arthritis of the medial joint space compartment of the knee. There is mild arthritis of the lateral joint space compartment of the knee. There is widening of the joint space laterally suggesting instability. There is no knee joint effusion. The periarticular soft tissues are normal. RAD/Knee 4 or More Views IMPRESSION: 1. Moderate arthritis of the patellofemoral joint and severe arthritis of the medial joint space compartment of the knee. 2. There is widening of the lateral joint space compartment of the knee sugges ting instability. Reading Location: [place] [id number]
--- NOTE | 2025-01-14 16:30 | RAD_ITS ---
PROCEDURE: KNEE 4 OR MORE VIEWS 01/14/2025 REASON FOR EXAM: FALL TECHNIQUE: Procedure Code: RADKN Modality: DX Procedure: KNEE 4 OR MORE VIEWS Laterality: Left COMPARISON: None FINDINGS: Status post left total knee arthroplasty. The patellar, femoral and tibial components are normal apposition. There is no evidence of fracture. There is no knee joint effusion. The periarticular soft tissues are unremarkable. RAD/Knee 4 or More Views IMPRESSION: Normal-appearing left total knee arthroplasty. Reading Location: [place] [id number]
[2025-01-14 17:26] VITALS: BP 159/83; PULSE 103; RESP 20; TEMP 36.8; O2SAT 100
[2025-01-14 18:10] VITALS: BP 140/66; PULSE 107; RESP 20; TEMP 36.6; O2SAT 100
== END 2025-01-14 18:12 | disposition home or self-care (01) ==
PROVIDERS: Emergency Provider Emergency Medicine; PCP Family Medicine Geriatric Medicine; Visit Provider Emergency Medicine
DX: S05.11XA Contusion of eyeball and orbital tissues, right eye, initial encounter (principal); I10 Essential (primary) hypertension; Z96.652 Presence of left artificial knee joint; Z79.82 Long term (current) use of aspirin; Z79.899 Other long term (current) drug therapy; W00.9XXA Unspecified fall due to ice and snow, initial encounter
CPT/HCPCS: 70450; 70486; 72125; 73564; 99282